=== PATIENT | male | born 1975 | race Caucasian/White ===

== ENCOUNTER 2017-02-01 19:49 | Emergency (ER) | payer OTHER ==
[~2017-02-01] VITALS: Ht 162.6 cm; Wt 47.5 kg
[~2017-02-01 19:49] MED LIST: CYCL-319 PO; HYDR-3498 PO; HYDR-762 PO; HYDR-906 PO; IBUP-1542 PO; IBUP800T25 PO; LEVE-5 PO; NAPR-260 PO; ONDA4TAB35 PO
[2017-02-01 19:56] VITALS: Ht 162.6 cm; Wt 47.5 kg
[2017-02-01] MEDS ORDERED: IBUP800T25 PO (21:46)
[2017-02-01] MEDS ORDERED: CIPR500T4 PO (21:46)
--- NOTE | 2017-02-01 21:51 | ERD ---
ER Documentation Chief Complaint Chief Complaint Groin pain HPI This is a 41-year-old male is complaining of a week of bilateral groin pain described as some knots in both groin. Patient says it is tender to touch but no erythema denies any penile discharge does have some urinary urgency. He does have unprotected sex with women. But does not have any clear or yellow discharge no suprapubic pain ROS All systems reviewed and are negative except as per history of present illness. Medications Home Meds Active Scripts Ibuprofen* (Motrin*) 800 Mg Tab, 800 MG PO Q6H Y for PAIN AND OR ELEVATED TEMP, #30 TAB Prov:TIERRA MURDOCK DO 02/01/17 Ciprofloxacin Hcl* (Ciprofloxacin Hcl*) 500 Mg Tablet, 500 MG PO BID for 7 Days , TAB Prov:TIERRA MURDOCK DO 02/01/17 Hydrocodone/Acetaminophen (Dawson 5-325 Tablet) 1 Each Tablet, 1 TAB PO Q6H Y for PAIN, #20 TAB Prov:RAYA MIRANDA DO 01/24/16 Cyclobenzaprine Hcl* (Cyclobenzaprine Hcl*) 10 Mg Tablet, 10 MG PO TID, #15 TAB Prov:LIS SANTACRUZ NP 09/22/15 Ibuprofen* (Motrin*) 600 Mg Tab, 600 MG PO Q6H Y for PAIN AND OR ELEVATED TEMP, #30 TAB Prov:LIS SANTACRUZ NP 09/22/15 Hydrocodone Bit-Acetaminophen* (Dawson*) 5-325 Mg Tab, 1 TAB PO Q6 Y for PAIN, # 20 TAB Prov:LIS SANTACRUZ NP 09/22/15 Levetiracetam* (Keppra*) 500 Mg Tablet, 500 MG PO BID, #60 TAB Prov:KIANA LINDA MD 08/31/15 Hydrocodone Bit-Acetaminophen* (Dawson*) 5-325 Mg Tab, 1 TAB PO Q6 Y for PAIN, # 20 TAB Prov:MARIELA BERMUDEZ 08/28/15 Ibuprofen* (Motrin*) 600 Mg Tab, 600 MG PO Q6, #30 TAB Prov:MARIELA BERMUDEZ 08/28/15 Ondansetron Hcl* (Zofran* ODT) 4 mg -ODT Tab.disper, 4 MG PO Q6 Y for NAUSEA AND /OR VOMITING, #10 TAB Prov:SOWMYA GALICIA MD 11/22/14 Ibuprofen* (Motrin*) 800 Mg Tab, 800 MG PO Q6H Y for PAIN AND OR ELEVATED TEMP, #30 TAB Prov:SOWMYA GALICIA MD 11/22/14 Hydrocodone Bit-Acetaminophen* (Dawson*) 10-325 Mg Tablet, 1 TAB PO Q6 Y for PAIN , #20 TAB Prov:SOWMYA GALICIA MD 11/22/14 Hydrocodone Bit-Acetaminophen* (Dawson*) 5-325 Mg Tab, 1 TAB PO Q6 Y for PAIN, # 10 TAB Prov:SAPNA JARAMILLO. 10/27/14 Naproxen* (Naprosyn*) 500 Mg Tablet, 500 MG PO BID Y for PAIN AND/OR INFLAMMATION, #20 TAB Prov:SAPNA JARAMILLO. 10/27/14 Allergies Allergies: Coded Allergies: No Known Allergy (Unverified , 11/22/14) PMhx/Soc History of Surgery: Yes (APPENDECTOMY) Anesthesia Reaction: No Hx Neurological Disorder: Yes (SEIZURE) Hx Respiratory Disorders: No Hx Cardiac Disorders: No Hx Psychiatric Problems: No Hx Miscellaneous Medical Probl: Yes (BULGING DISC LOWER BACK, HEP C) Hx Alcohol Use: No Hx Substance Use: Yes ([facility]) Hx Tobacco Use: No Smoking Status: Never smoker FmHx Family History: No coronary disease Physical Exam Vitals Vital Signs Date Time Temp Pulse Resp B/P Pulse Ox O2 Delivery O2 Flow Rate FiO2 02/01/17 19:56 99.0 85 20 114/76 98 Physical Exam Const: Well-developed, well-nourished Head: Atraumatic, normocephalic Eyes: Normal Conjunctiva, PERRLA, EOMI, normal sclera, no nystagmus ENT: Normal External Ears, Nose and Mouth, moist mucus membranes. Neck: Full range of motion. No meningismus, no lymphadenopathy. Resp: Clear to auscultation bilaterally, no wheezing, rhonchi, rales Cardio: Regular rate and rhythm, no murmurs, S1 S2 present Abd: Soft, non tender x 4, non distended. Normal bowel sounds, no guarding or rebound, no pulsitile abdominal masses or bruits bilateral inguinal lymphadenopathy with tender nodes, nodes or about 1 cm internal side Skin: No petechiae or rashes, no ecchymosis , no maculopapular rash Back: No midline or flank tenderness Ext: No cyanosis, or edema, FROM x 4, normal inspection, neurovascularly intact x 4 Neur: Awake and alert, STR 5/5 x 4, sensation intact x 4, no focal findings, cerebellum intact Psych: Normal Mood and Affect Procedures/MDM Patient has lymphadenitis in his groin. Likely reactive possibly from an STD cover with Cipro Departure Diagnosis: Primary Impression: Lymphangitis Condition: Stable Patient Instructions: TIERRA Chahal DO Feb 01, 2017 21:51
== END 2017-02-01 22:07 | disposition home or self-care (01) ==
LOC: FTE 19:49
DX: I89.1 Lymphangitis (principal)
CPT/HCPCS: 99283

== ENCOUNTER 2018-01-26 10:07 | Emergency (ER) | END 2018-01-26 12:18 | disposition home or self-care (01) ==